=== PATIENT | male | born 1960 | race Caucasian/White ===

== ENCOUNTER → 2017-01-30 | Outpatient (CLI) | payer OTHER ==
[~2017-01-30] VITALS: Ht 167.6 cm; Wt 107.0 kg
[~2017-01-30] MED LIST: ALBU17IN INH; CALA120T2 PO; CALA240T PO; CALC1TAB PO; COMBAER6 INH; ESTR1TAB3 PO; FISH1000 PO; FISH100049 PO; IBUP-1114 PO; LIDOCAINE 2% INJ 100 MG/5 ML SDV (FOR ANES.) As Ordered ONE; LIPI20TA PO; MECL-86 PO; MULT1CHW26 PO; NEXI40CA PO; NS 1,000 ML IV SCH; PRIL20CA9 PO; PROPOFOL 500 MG/50 ML VIAL As Ordered ONE; QUIN40TA5 PO; VIAG100T PO; VITA10006 PO; fentaNYL 100 MCG/2 ML INJECTION (J3010) As Ordered ONE
--- NOTE | 2017-01-30 11:19 | ROOR ---
Patient Name: Hong Vidal Procedure Date: 01/30/2017 10:21 AM Date of : 1960 Age: 56 Room: [facility] Gender: Male Note Status: Finalized Procedure: Upper GI endoscopy + Balloon Dilatation + Biopsies Indications: Heartburn, Abnormal UGI series Providers: Mike Melgar MD Referring MD: Jory Weinberg NP Requesting Provider: Medicines: Monitored Anesthesia Care Complications: No immediate complications. Procedure: Pre-Anesthesia Assessment: - The heart rate, respiratory rate, oxygen saturations, blood pressure, adequacy of pulmonary ventilation, and response to care were monitored throughout the procedure. The Endoscope was introduced through the mouth, and advanced to the second part of duodenum. The upper GI endoscopy was accomplished without difficulty. The patient tolerated the procedure well. Findings: The Z-line was regular and was found 40 cm from the incisors. A widely patent, non-obstructing and mild Schatzki ring (acquired) was found at the gastroesophageal junction. A TTS dilator was passed through the scope. Dilation with an 18-19-20 mm balloon dilator was performed to 20 mm. A small hiatal hernia was present. One non-bleeding cratered and superficial gastric ulcer with pigmented material was found in the gastric antrum. Biopsies were taken with a cold forceps for Helicobacter pylori testing. Localized moderate inflammation characterized by congestion (edema), erosions, erythema, friability, granularity, aphthous ulcerations and shallow ulcerations was found in the gastric antrum. The exam of the duodenum was otherwise normal. Impression: - Z-line regular, 40 cm from the incisors. - Widely patent, non-obstructing and mild Schatzki ring. Dilated. - Small hiatal hernia. - Non-bleeding gastric ulcer with pigmented material. Biopsied. - Acute gastritis. - The examination was otherwise normal. Recommendation: - Patient has a contact number available for emergencies. The signs and symptoms of potential delayed complications were discussed with the patient. Return to normal activities tomorrow. Written discharge instructions were provided to the patient. - High fiber diet. - Discharge patient to home. - Continue present medications. - Await pathology results. - Telephone GI clinic for pathology results in 1 week. - Return to referring physician. - The findings and recommendations were discussed with the patient's family. Mike Melgar MD Mike Melgar MD 01/30/2017 11:19:09 AM This report has been signed electronically. Number of Addenda: 0 Note Initiated On: 01/30/2017 10:21 AM Estimated Blood Loss: Estimated blood loss: none.
--- NOTE | 2017-01-30 11:45 | ROOR ---
Patient Name: Hong Vidal Procedure Date: 01/30/2017 10:59 AM Date of : 1960 Age: 56 Room: [facility] Gender: Male Note Status: Finalized Procedure: Colonoscopy to Cecum + Biopsy Polypectomy + Hemoclips Indications: Screening for colorectal malignant neoplasm Providers: Mike Melgar MD Referring MD: Jory Weinberg NP Requesting Provider: Medicines: Monitored Anesthesia Care Complications: No immediate complications. Procedure: Pre-Anesthesia Assessment: - The heart rate, respiratory rate, oxygen saturations, blood pressure, adequacy of pulmonary ventilation, and response to care were monitored throughout the procedure. The Colonoscope was introduced through the anus and advanced to the cecum, identified by appendiceal orifice and ileocecal valve. The colonoscopy was performed without difficulty. The patient tolerated the procedure well. The quality of the bowel preparation was excellent. Findings: The perianal and digital rectal examinations were normal. Non-bleeding internal hemorrhoids were found during retroflexion. The hemorrhoids were small and Grade I (internal hemorrhoids that do not prolapse). A medium polyp was found in the cecum. The polyp was carpet-like. The polyp was removed with a cold snare. Resection and retrieval were complete. To prevent bleeding after the polypectomy, three hemostatic clips were successfully placed (MR conditional). There was no bleeding at the end of the procedure. The exam was otherwise without abnormality on direct and retroflexion views. Impression: - Non-bleeding internal hemorrhoids. - One medium polyp in the cecum, removed with a cold snare. Resected and retrieved. Clips (MR conditional) were placed. - The examination was otherwise normal on direct and retroflexion views. - The exam was otherwise normal to the cecum. Recommendation: - Patient has a contact number available for emergencies. The signs and symptoms of potential delayed complications were discussed with the patient. Return to normal activities tomorrow. Written discharge instructions were provided to the patient. - High fiber diet. - Discharge patient to home. - Continue present medications. - Await pathology results. - Telephone GI clinic for pathology results in 1 week. - Repeat colonoscopy in 1 year for surveillance based on pathology results. - Return to referring physician. - The findings and recommendations were discussed with the patient's family. Mike Melgar MD Mike Melgar MD 01/30/2017 11:44:45 AM This report has been signed electronically. Number of Addenda: 0 Note Initiated On: 01/30/2017 10:59 AM Estimated Blood Loss: Estimated blood loss: none.
[2017-01-30 12:10] VITALS: BP 125/65
== END | disposition home or self-care (01) ==
LOC: M OPP 10:04
PROVIDERS: ATTEND Internal Medicine Gastroenterology
DX: Z12.11 Encounter for screening for malignant neoplasm of colon (principal); K64.0 First degree hemorrhoids; D12.0 Benign neoplasm of cecum; R12 Heartburn; K22.2 Esophageal obstruction; K25.9 Gastric ulcer, unspecified as acute or chronic, without hemorrhage or perforation; K44.9 Diaphragmatic hernia without obstruction or gangrene; I10 Essential (primary) hypertension; E78.00 Pure hypercholesterolemia, unspecified; G47.30 Sleep apnea, unspecified; F17.200 Nicotine dependence, unspecified, uncomplicated; F17.228 Nicotine dependence, chewing tobacco, with other nicotine-induced disorders; Z79.899 Other long term (current) drug therapy
CPT/HCPCS: 43239; 43249; 45385; 88305; 99156; 99157; J3010